=== PATIENT | female | born 1990 | race Caucasian/White ===

== ENCOUNTER 2019-04-04 13:40 | Inpatient (IN) | payer OTHER ==
[2019-04-04 14:17] VITALS: BMI 27.6
[2019-04-04] MEDS ORDERED: Lidocaine 1% (PF) 30 ML VIAL SC PRN (14:44)
[2019-04-04] MEDS ORDERED: HYDROcodone/Acetaminophen 5/325 mg Tablet PO PRN (14:44)
[2019-04-04] MEDS ORDERED: Ibuprofen 800 MG TAB PO PRN (14:44)
[2019-04-04] MEDS ORDERED: Methylergonovine 0.2 MG/ML VIAL IM PRN (14:44)
[2019-04-04] MEDS ORDERED: Acetaminophen 500 MG TAB PO PRN (14:44)
[2019-04-04] MEDS ORDERED: Carboprost 250 MCG/ML AMP IM PRN (14:44)
[2019-04-04] MEDS ORDERED: Butorphanol Tartrate 1 MG/ML VIAL SLOW IVP PRN (14:44)
[2019-04-04] MEDS ORDERED: Promethazine HCl 25 MG/ML VIAL IM PRN (14:44)
[2019-04-04] MEDS ORDERED: Ondansetron PF 4 MG/2 ML Vial IVP PRN (14:44)
[2019-04-04] MEDS ORDERED: Misoprostol 200 MCG TAB PR PRN (14:44)
[2019-04-04] MEDS ORDERED: Lactated Ringer's 1,000 ML IV SCH (14:45)
[2019-04-04] MEDS ORDERED: Lidocaine 1% (PF) 30 ML VIAL ONE (14:51)
[2019-04-04 15:27] LABS: Mean Corpuscular HGB CONC 33.4 g/dL (32.0-36.0); Mean Corpuscular Hemoglobin 32.5 pg (27.0-31.0); Mean Corpuscular Volume 97.2 fL (78.0-98.0); Mean Platelet Volume 10.4 fL (7.4-10.4); Platelet Count 149 thou/uL (130-400); RBC Distribution Width 12.8 % (11.5-14.5); Red Blood Cell (RBC) Count 4.01 mill/uL (4.20-5.40); White Blood Cell (WBC) Count 13.4 thou/uL (4.8-10.8)
[2019-04-04 16:12] LABS: HBSAg Index 0.24 S/CO (0-0.99); Hep B Surf Ag Non-Reactive S/CO (NonReactive); Syphilis Antibody Nonreactive (Nonreactive); Syphilis Antibody Index 0.05 S/CO (<1.00 Non-Reactive)
--- NOTE | 2019-04-04 20:00 | PDOC.LDHP ---
Labor and Delivery H&P Chief complaint: contractions HPI: [id number]. Low intervention patient. CTX started this afternoon. Current gestational age (weeks): 41 Due date: 03/23/19 Dating criteria: last menstrual period, first trimester ultrasound Grav: 1 Para: 0 Current complications: none Abnormal US findings: No Current medications: pre-iliana vitamins Previous surgical history: none Allergies/Adverse Reactions: Allergies Allergy/AdvReac Type Severity Reaction Status Date / Time Penicillins Allergy Verified 04/04/19 14:03 - Physical Exam Vital signs reviewed and normal: yes General: NAD, breathing through contractions Heart: RRR Lungs: CTAB Abdomen: gravid Extremeties: no edema FHT: category 1, variability present - Vaginal Exam cm dilated: 6 Effacement: 90% Station: -1 - OB Labs Blood type: O RH: positive Antibody Screen: negative HIV: negative RPR: negative HEPSAg: negative 1 hour GCT: negative GBS: negative Urine drug screen: not done Rubella: immune - Assessment L&D Assessment: term patient in labor - Plan Plan: admit to L&D (Low intervention nursing protocol at pt request)
--- NOTE | 2019-04-04 22:46 | PDOC.EVN ---
Event Note - Event Note Event Note: SVE 9/100/0. AROM with clear fluid. FHT 140's with moderate variability. Continue low intervention. Intermittent monitoring. Mom and baby doing well.
[2019-04-05] MEDS: NS / Oxytocin 40 units/1000ml 1,000 ML IV PRN ×2 (02:52→03:12)
[2019-04-05] MEDS ORDERED: HYDROcodone/Acetaminophen 5/325 mg Tablet PO PRN (04:52)
[2019-04-05] MEDS ORDERED: NS / Oxytocin 40 units/1000ml 1,000 ML IV SCH (04:52)
[2019-04-05] MEDS ORDERED: Benzocaine-Menthol 82.5 ML CAN TOP PRN (04:52)
[2019-04-05] MEDS ORDERED: Bisacodyl 10 MG SUPP PR PRN (04:52)
[2019-04-05] MEDS ORDERED: Milk Of Magnesia 30 ML UDCUP PO PRN (04:52)
[2019-04-05] MEDS ORDERED: Lanolin Ointment 7 GM TUBE TOP PRN (04:52)
[2019-04-05] MEDS: Ibuprofen 800 MG TAB PO SCH ×3 (05:50→20:27)
[2019-04-05] MEDS: Ferrous Sulfate 325 MG TAB PO SCH ×2 (08:48→18:35)
[2019-04-05] MEDS: Docusate Calcium (SURFAK) 240 MG CAP PO SCH ×2 (11:10→20:29)
--- NOTE | 2019-04-05 15:37 | PDOC.PP ---
Post Progress Note Post Day #: 1 Subjective: Doing well. well - baby a little sleepy but latches well when awake. PO intake tolerated: yes Flatus: yes Ambulation: yes Vital Signs (12 hours) Temp Pulse Resp BP Pulse Ox 04/05/19 11:00 98.1 F 110 H 16 101/59 L 04/05/19 07:00 98.3 F 93 16 122/66 97 04/05/19 06:10 98.2 F 99 18 115/68 04/05/19 04:50 97.7 F 88 18 115/69 98 Weight Weight 171 lb - Physical Examination General: NAD Cardiovascular: no m/r/g, RRR Respiratory: clear to auscultation bilaterally, non-labored breathing Abdominal: + bowel sounds, lochia, no distention, appropriately TTP Psychiatric: A&Ox3, normal affect Result Diagrams: 04/04/19 15:09 Additional Labs: Post Labs Blood Type O POSITIVE 04/04/19 15:09 Hep Bs Antigen Non-Reactive S/CO (NonReactive) 04/04/19 15:22 (1) Vaginal delivery Code(s): O80 - ENCOUNTER FOR FULL-TERM UNCOMPLICATED DELIVERY Status: Acute (2) Second degree perineal laceration during delivery Code(s): O70.1 - SECOND DEGREE PERINEAL LACERATION DURING DELIVERY Status: Acute - Assessment/Plan Doing well, no concerns. Continue to work on - baby with some low sugars and positive prince. Routine care. Discharge is dependent on baby's progress.
--- NOTE | 2019-04-06 05:33 | PDOC.PP ---
Post Progress Note Post Day #: 1 Subjective: Doing well. Resting. well but milk not in yet, supplementing for low glucose PO intake tolerated: yes Flatus: yes Ambulation: yes Vital Signs (12 hours) Temp Pulse Resp BP Pulse Ox 04/06/19 00:20 97.6 F 96 18 108/70 96 04/05/19 20:25 99 04/05/19 20:16 98.0 F 101 H 18 111/70 99 Weight Weight 171 lb - Physical Examination General: NAD Cardiovascular: no m/r/g, RRR Respiratory: clear to auscultation bilaterally, non-labored breathing Abdominal: + bowel sounds, lochia, no distention, appropriately TTP Result Diagrams: 04/04/19 15:09 Additional Labs: Post Labs Blood Type O POSITIVE 04/04/19 15:09 Hep Bs Antigen Non-Reactive S/CO (NonReactive) 04/04/19 15:22 (1) Vaginal delivery Code(s): O80 - ENCOUNTER FOR FULL-TERM UNCOMPLICATED DELIVERY Status: Acute (2) Second degree perineal laceration during delivery Code(s): O70.1 - SECOND DEGREE PERINEAL LACERATION DURING DELIVERY Status: Acute - Assessment/Plan Routine PP care D/C likely tomorrow because of baby's glucose and bili Will be 48 hours tomorrow early AM
[2019-04-06] MEDS: Ibuprofen 800 MG TAB PO SCH ×3 (06:20→21:05)
[2019-04-06] MEDS: Docusate Calcium (SURFAK) 240 MG CAP PO SCH ×2 (09:10→21:05)
[2019-04-06] MEDS: Ferrous Sulfate 325 MG TAB PO SCH ×2 (09:11→17:12)
[2019-04-07] MEDS: Ibuprofen 800 MG TAB PO SCH (05:34)
--- NOTE | 2019-04-07 08:06 | PDOC.PP ---
Post Progress Note Post Day #: 2 Subjective: Doing well, ready for D/C PO intake tolerated: yes Flatus: yes Ambulation: yes Weight Weight 171 lb - Physical Examination General: NAD Cardiovascular: no m/r/g, RRR Respiratory: clear to auscultation bilaterally, non-labored breathing Abdominal: + bowel sounds, lochia, no distention, appropriately TTP Result Diagrams: 04/04/19 15:09 Additional Labs: Post Labs Blood Type O POSITIVE 04/04/19 15:09 Hep Bs Antigen Non-Reactive S/CO (NonReactive) 04/04/19 15:22 (1) Vaginal delivery Code(s): O80 - ENCOUNTER FOR FULL-TERM UNCOMPLICATED DELIVERY Status: Acute (2) Second degree perineal laceration during delivery Code(s): O70.1 - SECOND DEGREE PERINEAL LACERATION DURING DELIVERY Status: Acute - Assessment/Plan Routine care D/C home
[2019-04-07] MEDS: Docusate Calcium (SURFAK) 240 MG CAP PO SCH (08:44)
[2019-04-07] MEDS: Ferrous Sulfate 325 MG TAB PO SCH (08:46)
[2019-04-07 08:53] VITALS: BP 110/75; TEMP 98.1
== END 2019-04-07 11:05 | disposition home or self-care (01) | DRG 807 ==
LOC: L&D/OP 13:40 → L&D-LIB 17:53 → 3SE 04-05 04:48 → 3SW 04-06 19:12
PROVIDERS: ADMIT Family Medicine; ATTEND Family Medicine
PROC: 10E0XZZ Delivery of Products of Conception, External Approach (ICD-10-PCS; principal; 2019-04-05)
PROC: 0KQM0ZZ Repair Perineum Muscle, Open Approach (ICD-10-PCS; 2019-04-05)
DX: O48.0 Post-term pregnancy (principal); Z37.0 Single live birth; Z3A.41 41 weeks gestation of pregnancy; O70.1 Second degree perineal laceration during delivery
CPT/HCPCS: 36415; 85027; 86780; 86850; 86900; 86901; 87340; 99285; J2001